=== PATIENT | male | born 1945 | race African-American/Black ===

== ENCOUNTER 2025-02-20 03:17 | Emergency (ER) | payer OTHER, MEDICARE ==
[~2025-02-20] VITALS: Ht 175.3 cm; Wt 63.3 kg
[2025-02-20 03:18] VITALS: O2SAT 60
[2025-02-20 03:50] VITALS: RESP 34
[2025-02-20 04:02] LABS: HEMATOCRIT. 30.9 % (42.0-52.0); HEMOGLOBIN. 10.1 g/dL (14.0-18.0); MEAN PLATELET VOLUME 9.0 fl (7.4-10.4); PLATELET 124 x1000/uL (130-400); RED BLOOD CELL COUNT 3.29 mill/uL (4.7-6.1); RED CELL DISTRIBUTION WIDTH 16.3 % (11.6-14.6)
[2025-02-20] MEDS: PIPERACILLIN/TAZO 3.375G/50ML 50 ML IV ONE (04:07)
[2025-02-20] MEDS: SODIUM CHLORIDE 0.9% (SEPSIS BOLUS) IV ONE (04:13)
[2025-02-20 04:22] LABS: INR 1.0
[2025-02-20 04:31] LABS: BG BASE EXCESS -19.2 mmol/L (-2.0-3.0); BG CARBOXYHEMOGLOBIN 0.1 % (0.5-1.5); BG DEOXYHEMOGLOBIN 11.8 % (0.0-5.0); BG FRACTION INSPIRED OXYGEN 100; BG HCO3 ACT 10.1 mmol/L (21.0-28.0); BG METHEMOGLOBIN 0.1 % (0.5-1.5); BG OXYGEN SATURATION 88.2 % (94.0-98.0); BG OXYHEMOGLOBIN 88.0 % (94.0-98.0); BG PCO2 37.2 mmHg (35.0-48.0); BG PH 7.051 (7.350-7.450); BG PO2 75.8 mmHg (83.0-108.0); BG SAMPLE SITE LEFT RADIAL; BG TOTAL HEMOGLOBIN 9.8 g/dL (13.5-17.5); BG VENT MODE MASK - BIPAP; BG VENT RATE 18.0 set
[2025-02-20 04:35] LABS: CREATININE 2.3 mg/dL (0.6-1.3); UREA NITROGEN BLOOD 75 mg/dL (9-23)
[2025-02-20 04:36] LABS: ETHANOL BLOOD < 10 mg/dL (<10)
[2025-02-20 04:37] LABS: ASPARTATE AMINOTRANSFERASE 52 IU/L (<34); BILIRUBIN DIRECT 0.1 mg/dL (<=3.0); BILIRUBIN TOTAL 0.4 mg/dL (0.1-1.0); PROTEIN TOTAL 6.5 g/dL (6.0-8.3)
[2025-02-20] MEDS: VANCOMYCIN 1G PREMIX 200 ML IV ONE (04:38)
[2025-02-20 04:58] LABS: TROPONIN I HIGH SENSITIVITY 37 ng/L (3.0-53)
[2025-02-20] MEDS ORDERED: NOREPINEPHRINE 8 MG in DEXT 5% WATER 242 ML IV PRN (05:15)
[2025-02-20 05:30] VITALS: TEMP 37.9; O2SAT 60
[2025-02-20] MEDS: NOREPINEPHRINE 8 MG in DEXT 5% WATER 242 ML IV PRN (05:31)
[2025-02-20] MEDS: SODIUM BICARBONATE 8.4% 50MEQ/50ML SYR IV ONE (05:31)
[2025-02-20] MEDS ORDERED: SODIUM BICARBONATE 8.4% 50MEQ/50ML SYR IV ONE (05:45)
[2025-02-20 05:48] LABS: ATYPICAL LYMPHOCYTES 6; LYMPHOCYTES % MANUAL 76.0 % (20.0-50.0); METAMYELOCYTES % 8.0 % (0-0); MONOCYTES % MANUAL 7.0 % (2.0-8.0); NEUTROPHILS % MANUAL 2.0 % (45.0-75.0); NUCLEATED RED BLOOD CELLS 1 /100 WBC; PROMYELOCYTES % 1.0 (0-0)
[2025-02-20 05:49] VITALS: BP 79/48; PULSE 145; RESP 35
[2025-02-20] MEDS: MORPHINE SULFATE 4 MG/ML INJ (FOR IV/IM USE) IV ONE (05:49)
[2025-02-20 05:50] LABS: PLATELET ESTIMATE NORMAL
[2025-02-20 06:21] LABS: INFLUENZA TYPE A Presumptive Negative (Pres. Neg.)
[2025-02-20 06:24] LABS: INFLUENZA TYPE B Presumptive Negative (Pres. Neg.)
[2025-02-20 06:25] LABS: RESPIRATORY SYNCYTIAL VIRUS Not Detected (Not Detectd)
== END 2025-02-20 06:01 ==
LOC: ER 03:17 → EDBEDREQTM 05:06 → EDBEDREQ 05:06 → EDBEDREQTM 05:08 → EDBEDREQSVC 05:08 → ER 06:01 → CMPBEDREQ 02-21 01:46
DX: A41.9 Sepsis, unspecified organism (principal); R65.21 Severe sepsis with septic shock; J18.9 Pneumonia, unspecified organism; R62.7 Adult failure to thrive; J96.01 Acute respiratory failure with hypoxia; C90.00 Multiple myeloma not having achieved remission; E11.9 Type 2 diabetes mellitus without complications; F03.90 Unspecified dementia, unspecified severity, without behavioral disturbance, psychotic disturbance, mood disturbance, and anxiety; I10 Essential (primary) hypertension; Z20.822 Contact with and (suspected) exposure to COVID-19
CPT/HCPCS: 80076; 80048; 80320; 83880; 83605; 85025; 85610; 85730; 86850; 86900; 86901; 87420; 87040; 84484; 87804 ×2; 36415; 84145; 71045; 82805; 82375; 94660; 93005; 94070; 96367; 96365; 96375; 99291; 99292; 87426; 36600; J2543; J3490; J3373; J2270; G0480